=== PATIENT | female | born 1945 | race Caucasian/White ===

== ENCOUNTER → 2017-04-08 | Outpatient (CLI) | payer OTHER ==
[~2017-04-08] VITALS: Ht 157.5 cm; Wt 90.7 kg
[~2017-04-08] MED LIST: ATIVAN1 MG PO; CENTRUM SILVER1 EAC1 PO; CENTRUM SILVER1 EAC4 PO; CITRACAL + D C1 EACH PO; CITRACAL + D E1 EACH PO; CO Q-10 100 MG1 EACH PO; DIAZEPAM 5 MG5 MG PO; FENTANYL PA25 MCG/HR TRANSDERM; L-GLUTAMINE500 M2 PO; LORAZEPAM 1 MG T1 M1 PO; MAGNESIUM250 MG PO; METAMUCIL PAC1 UDPKT PO; NABUMETONE 750750 M1 PO; PHILLIPS' COLO1 EACH PO; PRILOSEC 20 MG20 MG PO; PROBIOTIC1 EAC1 PO; PROLIA60 MG/1 ML SQ; TORADOL 10 MG T10 MG PO; ULTRAM 50MG TAB50 MG PO
--- NOTE | ~2017-04-08 | P ---
[facility] [address] PROCEDURE REPORT Name: RAKESHBIGG ODONNELL Room #: REG LAUREEN Edmonds#: [id number] Admission: 04/08/17 Attend Phys: Elgin Martinez Discharge: Date of : 47 Report #: [id number] THIS REPORT FOR: //name// CC: Elgin Castillo ____ ____ DATE OF SERVICE: 04/08/2017 PROCEDURE PERFORMED: Flexible sigmoidoscopy with biopsies. HISTORY OF PRESENT ILLNESS: The patient is a 71-year-old female who was recently seen in the office on 03/26/2017 with complaints of chronic bright red blood per rectum. She states it has been ongoing since her partial sigmoid resection 10 years ago for diverticulitis. She has also had a hemorrhoidectomy in the past. She underwent a colonoscopy by Dr. Agata Iraheta in January of last year that showed a proctitis, biopsies showing mild acute proctitis with cryptitis. She has been treated with 2 rounds of suppositories without any significant improvement. Plan is for flexible sigmoidoscopy today. DESCRIPTION OF PROCEDURE: The risks and benefits of the procedure were explained to the patient, those risks including but not limited to bleeding, perforation, the risk of sedation. She understood these risks and gave informed consent. Sedation was given using propofol per anesthesia. Next, a digital rectal exam was initially performed, which showed a small external hemorrhoid, but otherwise normal. Next, using a standard Fujinon colonoscope, the scope was placed in the patient's anus and advanced under direct vision to the mid ascending colon and slowly withdrawn. The prep was excellent. The distal ascending colon and transverse colon were all normal. No evidence of colitis. In the descending colon, there started to be mild erythema consistent with a possible mild colitis. Random biopsies were obtained. In the sigmoid colon, there was more evidence of colitis. Biopsies obtained in this area. The surgical anastomosis was noted in the rectosigmoid area. The anastomosis showed no significant inflammation, however, just distal to the anastomosis was more significant colitis. Multiple biopsies were obtained in this area. Also noted in the rectum was a moderate colitis, biopsies obtained. Small internal hemorrhoids were noted and then again there was an external hemorrhoid noted and on this external hemorrhoid was an eschar suggesting a recent bleed. There is no active bleeding today, but there was blood in the rectosigmoid area, a small amount of blood consistent with active colitis. The scope was then withdrawn and the procedure terminated. The patient tolerated the procedure well. IMPRESSION: 1. Colitis involving the rectum, rectosigmoid area, suspect this is secondary to ulcerative colitis with multiple biopsies obtained. 2. Mild erythema, possible mild colitis in the descending and sigmoid colon. [facility] [address] [place] [address] PROCEDURE REPORT Name: BIGG PIERRE Room #: REG LAUREEN Edmonds#: [id number] Admission: 04/08/17 Attend Phys: Elgin Martinez Discharge: Date of : 47 Report #: [id number] 3. Small nonbleeding internal hemorrhoids. 4. No evidence of bleeding at the anastomosis. 5. External hemorrhoid with eschar, likely recent bleeding. No current bleeding. RECOMMENDATIONS: 1. Await biopsy results. 2. I will discuss options with the patient, may consider a trial of steroids, may need to consider mesalamine p.o. and other options depending on the biopsy results. Thank you for allowing me to participate in her care. By: [id number] Elgin Knox MD /nt
== END | disposition home or self-care (01) ==
LOC: GI 07:53
DX: K52.89 Other specified noninfective gastroenteritis and colitis (principal); K64.4 Residual hemorrhoidal skin tags; K64.8 Other hemorrhoids; G47.33 Obstructive sleep apnea (adult) (pediatric); Z87.891 Personal history of nicotine dependence; G43.909 Migraine, unspecified, not intractable, without status migrainosus; K21.9 Gastro-esophageal reflux disease without esophagitis; M81.0 Age-related osteoporosis without current pathological fracture; Z87.442 Personal history of urinary calculi; Z90.710 Acquired absence of both cervix and uterus; Z85.820 Personal history of malignant melanoma of skin; Z98.890 Other specified postprocedural states
CPT/HCPCS: 62110; 62900

== ENCOUNTER → 2017-12-25 | Outpatient (CLI) | payer OTHER | LOC: RAD 15:42 | DX: R06.02 Shortness of breath (principal); K21.9 Gastro-esophageal reflux disease without esophagitis ==

== ENCOUNTER → 2020-05-14 | Outpatient (CLI) | payer OTHER | LOC: RAD 12:13 | PROVIDERS: ATTEND Family Medicine | DX: Z01.818 Encounter for other preprocedural examination (principal) ==